=== PATIENT | female | born 1965 | race African-American/Black ===

== ENCOUNTER 2017-12-06 20:30 | Outpatient (CLI) | payer MEDICARE, MEDICAID | END 2017-12-06 20:31 | disposition home or self-care (01) | LOC: SLEEPLAB 20:30 | PROVIDERS: ATTEND Family Medicine | DX: G47.33 Obstructive sleep apnea (adult) (pediatric) (principal); E66.9 Obesity, unspecified; R53.83 Other fatigue; R06.83 Snoring; G47.00 Insomnia, unspecified; M54.5 Low back pain | CPT/HCPCS: 95811 ==